=== PATIENT | female | born 1980 | race Caucasian/White ===

== ENCOUNTER 2016-10-21 17:25 | Emergency (ER) | payer OTHER ==
--- NOTE | ~2016-10-21 | CR243 ---
[facility] A Service of [facility] & [facility] / [facility] RADIOLOGY TEXT RESULTS PATIENT: MCKINLEY LINDSEY LOCATION: SED : 78 UNIT #: [id number] AGE: [address]: FAITH DAWSON SEX: F ORDER DR: [id number] [place] [id number] E MR#: [id number] Acc #: [id number] NAME: MCKINLEY LINDSEY : 1980 SEX: F STUDY DATE/TIME: 10/21/2016 17:21 UNIT: SED ROOM: STUDY DESCRIPTION: CR Thoracic Spine 3 Views Attending Physician: Faith Dawson Aprn Ordering Physician: Physician Non-Staff [facility] Care Phys[facility] REPORT This report is preliminary unless electronic signature is present. EXAM Thoracic spine 3 views HISTORY Back pain after fall 5 days ago. FINDINGS 3 views of the thoracic spine demonstrate very mild right lower thoracic curve. No fracture, disc space narrowing or subluxation. No abnormal sclerosis. IMPRESSION No acute findings Dictated by... Rolando Sanchez M.D. THIS IS AN ELECTRONICALLY VERIFIED REPORT Rolando Sanchez M.D. at 10/21/2016 10:59 PM KRUNAL/laurita TD: 10/21/2016 21:40 JOB #: [id number] MEDICAL IMAGING REPORT Page 1 of 1
--- NOTE | ~2016-10-21 | CR181 ---
[facility] A Service of [facility] & [facility] RADIOLOGY TEXT RESULTS PATIENT: MCKINLEY LINDSEY LOCATION: SED : 78 UNIT #: [id number] AGE: [address]: FAITH DAWSON SEX: F ORDER DR: [id number] [place] [id number] E MR#: [id number] Acc #: [id number] NAME: MCKINLEY LINDSEY : 1980 SEX: F STUDY DATE/TIME: 10/21/2016 17:21 UNIT: SED ROOM: STUDY DESCRIPTION: CR Lumbar Spine 2 or 3 Views Attending Physician: Faith Dawson Aprn Ordering Physician: Physician Non-Staff Primary [facility] REPORT This report is preliminary unless electronic signature is present. EXAM Lumbar spine 3 views HISTORY Back pain after fall down stairs 5 days ago. FINDINGS 3 views lumbar spine demonstrate satisfactory lumbar alignment. Severe degenerative disc space narrowing and degenerative disc disease at L5-S1. No disc space narrowing at the remainder of the lumbar levels. No fracture or subluxation. Surgical clips in the right upper quadrant. IMPRESSION 1. No acute findings. No fracture. 2. Degenerative disc disease and severe disc space narrowing at L5-S1. Dictated by... Rolando Sanchez M.D. THIS IS AN ELECTRONICALLY VERIFIED REPORT Rolando Sanchez M.D. at 10/21/2016 10:59 PM DFMarita/laurita TD: 10/21/2016 21:38 JOB #: [id number] MEDICAL IMAGING REPORT Page 1 of 1
[~2016-10-21 17:25] MED LIST: ALPRAZOLAM PO; AUGMENTIN PO; BACLOFEN10 MG PO; CELEXA20 MG PO; CERTAGEN PO; CIPRO PO; DETROL LA PO; EFFEXOR PO; EFFEXOR XR PO; FLOMAX0.4 M1 PO; NEURONTIN300 MG PO; OMEPRAZOLE20 M2 PO; PERCOCET5/325 PO; PHENERGAN PR; PRILOSEC PO; PRISTIQ50 MG PO; PROMETHAZINE HC25 MG PO; VICODIN 5/500 T1 TAB PO; VICODIN PO; VOLTAREN50 MG PO; VOLTAREN75 MG PO; YASMIN 28 TABLE1 TAB PO; ZOFRAN ODT4 MG PO
[2016-10-21 17:39] LABS: URINE SOURCE CLEAN CATCH
[2016-10-21 17:41] LABS: URINE BILIRUBIN NEG (NEG); URINE BLOOD TRACE-INTACT (NEG); URINE COLOR YELLOW; URINE GLUCOSE NEG (NORM); URINE KETONE NEG (NEG); URINE LEUKOCYTE ESTERASE 3+ (NEG); URINE NITRATE POS (NEG); URINE PH 6.5 (5-8); URINE PROTEIN NEG (NEG); URINE SPECIFIC GRAVITY <=1.005 (1.003-1.035); URINE UROBILINOGEN 0.2 MG/DL (NORM)
[2016-10-21 17:46] LABS: MICRO INDICATED? YES; URINE APPEARANCE SL HAZY
[2016-10-21 17:56] LABS: URINE RBC 0-2 /[HPF] (0-2)
[2016-10-21 17:57] LABS: CULTURE INDICATED? YES; URINE BACTERIA 1+ (NEG); URINE SQUAMOUS EPITHELIAL CELL MANY /[HPF]; URINE WBC 25-50 /[HPF] (0-5)
== END 2016-10-21 18:41 | disposition home or self-care (01) ==
LOC: SED 17:25
PROVIDERS: Nurse Practitioner Family
DX: S39.012A Strain of muscle, fascia and tendon of lower back, initial encounter (principal); N30.00 Acute cystitis without hematuria; Z90.49 Acquired absence of other specified parts of digestive tract; F17.210 Nicotine dependence, cigarettes, uncomplicated; W18.30XA Fall on same level, unspecified, initial encounter; Y92.89 Other specified places as the place of occurrence of the external cause
CPT/HCPCS: 72072; 72100; 81003; 87086; 87088; 87186; 96372; 99284; J1885